=== PATIENT | male | born 1975 | race Two or more races ===

== ENCOUNTER 2021-07-24 09:15 | Outpatient (REF) | payer BC, SELFPAY ==
[2021-07-24 10:08] LABS: Hematocrit 44.8 % (42.0-52.0); Hemoglobin 14.7 g/dl (14.0-18.0); Mean Corpuscular HGB Conc 32.8 g/dl (31.0-36.0); Mean Corpuscular Hemoglobin 27.8 pg (27.0-33.0); Mean Corpuscular Volume 84.8 fL (80.0-98.0); Mean Platelet Volume 10.5 fL (9.4-12.4); Platelet Count 273 X10*3/uL (160-400); Red Blood Count 5.28 X10*6/uL (4.60-5.80); Red Cell Distribution Width 12.8 % (11.0-16.0); White Blood Count 6.5 X10*3/uL (4.8-10.8)
[2021-07-24 10:20] LABS: Estimated Average Glucose 126 mg/dL
[2021-07-24 10:22] LABS: Alanine Aminotransferase 60 U/L (0-40); Albumin Level 4.5 g/dL (3.5-5.0); Alkaline Phosphatase 48 U/L (39-117); Anion Gap 11 (12-20); Aspartate Amino Transferase 35 U/L (5-37); Bilirubin Total 0.7 mg/dL (0.0-1.0); Blood Urea Nitrogen 16 mg/dL (9-16); Calcium 9.5 mg/dL (8.4-10.2); Carbon Dioxide 26 mmol/L (22-29); Chloride 108 mmol/L (96-108); Cholesterol 237 mg/dL; Estimated Glomerular Filt Rate > 60; Glucose Fasting 101 mg/dL (60-99); HDL Cholesterol 44 mg/dL; LDL Cholesterol Calculated 173 mg/dl; Potassium 4.2 mmol/L (3.3-5.1); Sodium 141 mmol/L (135-145); Total Protein 7.1 g/dL (6.5-8.0); Triglycerides 104 mg/dL
[2021-07-24 10:59] LABS: TSH reflex Free T4 2.27 uIU/mL (0.32-4.0)
[2021-07-24 11:01] LABS: Prostate Specific Antigen Scr 0.73 ng/mL (<0.05-4.0)
== END 2021-07-24 09:16 | disposition home or self-care (01) ==
LOC: HO.LAB 09:15
PROVIDERS: PCP Physician Assistant; Visit Provider Physician Assistant
DX: Z13.1 Encounter for screening for diabetes mellitus (principal); Z12.5 Encounter for screening for malignant neoplasm of prostate; Z13.29 Encounter for screening for other suspected endocrine disorder; E78.5 Hyperlipidemia, unspecified
CPT/HCPCS: 36415; 80053; 80061; 83036; 84153; 84443; 85027

== ENCOUNTER 2023-02-16 09:48 | Outpatient (AMB) | payer BC, SELFPAY ==
[2023-02-16 10:18] VITALS: BP 120/80; PULSE 70; RESP 16; O2SAT 98; BMI 24.1
--- NOTE | 2023-02-16 10:18 | MHC.PC.OV ---
Vital Signs 02/16/23 10:18 Height 5 ft 7 in Weight 154 lb 2 oz BMI 24.1 BP 120/80 Blood Pressure Location Lt brachial Position Sitting Respiration 16 Pulse 70 Pulse Source Pulse Oximeter Pulse Oximetry (%) 98 Oxygen Delivery Method Room Air Intake Visit Reasons: Back Pain Intake Note: Pt is here for F/U chronic lower back pain. Application Coordinator Required: No Accompanied by: Self / Same As Patient Allergies atorvastatin Allergy (Mild, Verified 02/16/23 10:31) Unknown Medication List - Last Reconciled 02/16/23 by Ismael Blanco PA-C fluticasone propionate 50 mcg/actuation (Flonase Allergy Relief) 1 spray intranasal BID 30 days ibuprofen 800 mg PO TID 90 days omeprazole magnesium (Prilosec OTC) 20 mg PO DAILY 90 days Tobacco use date assessed: 02/16/23 Dental Screening Dental Screen Date: 02/16/23 Did you have a dental visit in the last 12 months?: No Did you have a dental problem in the last 6 months where you did not have access to dental care?: No Was dental information given to patient?: Patient has dentist HPI Back Pain HPI Details Patient is a 47-year-old male here today for follow-up visit. Patient's past medical history significant for hyperlipidemia, GERD, impaired glucose metabolism and chronic lower lumbar spine pain. .. Hyperlipidemia: Most recent fasting lipid panel showing elevated total cholesterol and LDL. Does have family history of coronary artery disease. We did discuss perhaps starting statin again though did not do well with statin due to side effect. He will continue working on lifestyle modifications to reduce his high cholesterol. .. Impaired glucose metabolism: Most recent labs showing of elevated fasting blood sugar and an A1c is 6.0. [facility] Surgical History No pertinent past surgical history Family History Father CAD (coronary artery disease) of artery bypass graft Throat cancer Mother TIA (transient ischemic attack) Social History Housing: House Alcohol intake: current Alcohol intake frequency: a few times a month Alcohol type: beer Patient Tobacco Use Status: Former Tobacco user (pt quit about a year ago.) Quit Date: 02/2022 Tobacco use type: Cigarette Cigarettes Per Day: 0 e-Cigarette/Vaping Use: Currently Using Frequency of e-Cigarette/Vaping Use: occasionally Second Hand Smoke Exposure: No service: No Current occupational status: employed 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 1. Little interest or pleasure in doing things: not at all 2. Feeling down, depressed, or hopeless: not at all 3. Trouble falling or staying asleep, or sleeping too much: not at all 4. Feeling tired or having little energy: not at all 5. Poor appetite or overeating: not at all 6. Feeling bad about yourself - or that you are a failure or have let yourself or your family down: not at all 7. Trouble concentrating on things, such as reading the newspaper or watching television: not at all 8. Moving or speaking so slowly that other people could have noticed. Or the opposite - being so fidgety or restless that you have been moving around a lot more than usual: not at all 9. Thoughts that you would be better off or of hurting yourself in some way: not at all Total score: 0 Depression Screening Interpretation: Negative 44682 - PHQ-9 Billing: Yes Source: Developed by Drs. Justin Kirk, Amparo Otero, Félix Gonzalez and colleagues, with an educational samuel from [employer]. Thrive Questionnaire Date Thrive assessed: 02/16/23 I am a: Patient What is your living situation today?: I have a steady place to live Within the past 12 months, did the food you bought not last and you didn't have the money to get more?: Never true Within the past 12 months, did you worry whether your food would run out before you got money to buy more?: Never true Do you have trouble paying for medicines?: No Do you have trouble getting transportation to medical appointments?: No Do you have trouble paying your heating and electricity bill?: No Do you have trouble taking care of your child, family member or friend?: No Do you have trouble with day-to-day activities such as bathing, preparing meals, shopping, managing finances, etc.?: No Are you currently unemployed and looking for a job?: No Are you interested in more education?: No Please select the resources that you would like help with: None Currently or been in a relationship where the following occur: no concerns reported AUDIT C Alcohol Use Questionnaire (AUDIT-C) 1. How often do you have a drink containing alcohol?: 2-3 times a week 2. How many drinks containing alcohol do you have on a typical day when you are drinking?: 1 or 2 3. How often do you have six or more drinks on one occasion?: Monthly Total Score: 5 YVES-7 AMB Questionnaire YVES-7 Date YVES - 7 assessed: 02/16/23 Feeling nervous, anxious, or on edge: 0 = Not at all Not being able to stop or control worryin = Not at all Worrying too much about different things: 0 = Not at all Trouble relaxin = Not at all Being so restless that it is hard to sit still: 0 = Not at all Becoming easily annoyed or irritable: 0 = Not at all Feeling afraid as if something awful might happen: 0 = Not at all Total YVSE-7 score (0-4 normal; 5-9 mild; 10-14 moderate; 15-21 severe): 0 Source: Developed by Drs. Justin Kirk, Amparo Otero, Félix Gonzalez and colleagues, with an educational samuel from [employer]. YVES-7 Assessment Billing YVES-7 Assessment Tool: YVES-7 Assessment 91185 Review of Systems Const Denies headache(s) Eyes Denies loss of vision ENT Denies vertigo, Denies dizziness, Denies headache(s) and Denies sore throat Card Denies chest pain, Denies leg edema and Denies lightheadedness Resp Denies cough, Denies hemoptysis and Denies wheezing GI Denies abdominal pain, Denies melena, Denies constipation, Denies diarrhea and Denies vomiting Denies dysuria, Denies urinary frequency and Denies urinary urgency Musc Denies arthralgias, Denies joint swelling, Denies numbness and Denies tingling Neuro Denies Abnormal speech present, Denies behavioral changes, Denies vertigo, Denies dizziness, Denies headache(s), Denies loss of vision, Denies memory loss, Denies numbness and Denies tingling Psych Denies anxiety, Denies behavioral changes, Denies depression, Denies memory loss and Denies panic attacks Lucas/Lymph Denies easy bleeding and Denies easy bruising Aller/Immun Denies wheezing Physical exam (Primary Care) Vital Signs: Last Vital Signs Pulse 70 02/16/23 10:18 Resp 16 02/16/23 10:18 BP 120/80 02/16/23 10:18 Pulse Ox 98 02/16/23 10:18 Oxygen Delivery Method Room Air 02/16/23 10:18 BMI result Body Mass Index 24.1 Tobacco/Smoking Status: Tobacco use Status Tobacco use date assessed 02/16/23 02/16/23 10:25 Patient Tobacco Use Status Former Tobacco user (pt quit 02/16/23 10:25 about a year ago.) Tobacco use type Cigarette 02/16/23 10:25 e-Cigarette/Vaping Use Currently Using 02/16/23 10:25 PHQ-9: PHQ-9 Score PHQ-9: Total score 0 02/16/23 10:31 Depression Screening Interpretation: Negative Thrive Assessment: Date of Thrive Assessment Date Thrive assessed 02/16/23 02/16/23 10:25 Currently or been in a relationship where the following occur: no concerns reported Const General: healthy appearing, no acute distress, alert and awake Nutritional Appearance: well nourished Orientation/consciousness: oriented to person, oriented to place and oriented to time HENMT Ears: TM's normal bilaterally General nose exam: Normal nasal mucous membranes and turbinates present Eyes Conjunctivae: conjunctivae normal Sclerae: sclerae normal Pupils: Equal, round and reactive pupils present Neck Neck: Yes no lymphadenopathy and Yes no JVD Thyroid: Thyroid normal Carotids: no bruits Resp Effort & Inspection: normal respiratory effort and not tachypneic Auscultation: no crackles, no rales, no rhonchi and no wheezes Cardio Rate: regular rate Rhythm: regular rhythm Heart sounds: no murmurs and normal S1 and S2 GI Palpation (GI): Soft to palpation, nontender, no hepatomegaly and no splenomegaly Auscultation: normal bowel sounds Skin General skin exam: no rashes or lesions noted and dry skin Neuro General: oriented to person, oriented to place and oriented to time Cranial nerves: Yes Equal, round and reactive pupils present Speech: No Abnormal speech present Gait exam (Neuro): Normal gait present Motor exam (neuro): no tremor noted Extrem Right upper extremity: full ROM Left upper extremity: full ROM Right lower extremity: full ROM; no edema Left lower extremity: full ROM; no edema Psych Mental Status: mental status grossly normal Speech and movement: Normal speech and movement present Affect: normal affect Attitude: cooperative Thought process: Normal thought process present Assessment and Plan Assessment & Plan (1) HLD (hyperlipidemia): Code(s): E78.5 - Hyperlipidemia, unspecified Qualifiers: Hyperlipidemia type: mixed hyperlipidemia Qualified Code(s): E78.2 - Mixed hyperlipidemia Plan: Patient's most recent lipid panel showing elevated total cholesterol and LDL. Does have a family history of coronary artery disease though is not interested in starting medication at this time, had side effects to statin in the past. Would like to work on lifestyle modifications to reduce his high cholesterol. (2) Impaired glucose metabolism: Code(s): R73.09 - Other abnormal glucose Plan: Patient's most recent fasting blood sugar and A1c in prediabetic range. He will work on lifestyle modifications on reducing his carbohydrates and sugar in his diet. (3) Colon cancer screening: Code(s): Z12.11 - Encounter for screening for malignant neoplasm of colon Plan: Considering colon cancer screening though would like to hold off on ordering Cologuard or colonoscopy at this time. Orders: Orders Comprehensive [place]. Panel Fast Today R73.09 - Other abnormal glucose Lipid Panel Today E78.2 - Mixed hyperlipidemia Hemoglobin A1c Today R73.09 - Other abnormal glucose Medications: New cholecalciferol (vitamin D3) 50 mcg PO DAILY 90 days 90 caps 1RF E55.9 - Vitamin D deficiency, unspecified, E78.2 - Mixed hyperlipidemia Refilled ibuprofen 800 mg PO TID 90 days 270 tabs 0RF M51.9 - Unspecified thoracic, thoracolumbar and lumbosacral intervertebral disc disorder fluticasone propionate 50 mcg/actuation (Flonase Allergy Relief) administer into each nostril 1 spray intranasal BID 30 days 16 grams 1RF K21.9 - Gastro-esophageal reflux disease without esophagitis omeprazole magnesium (Prilosec OTC) 20 mg PO DAILY 90 days 90 tabs 1RF K21.9 - Gastro-esophageal reflux disease without esophagitis Coding Level of Care Code Est Pt Level 4 (41143) Diagnoses Mixed hyperlipidemia E78.2 Hyperlipidemia type: mixed hyperlipidemia Impaired glucose metabolism R73.09 Colon cancer screening Z12.11 Additional Codes YVES-7 Assessment Billing - YVES-7 Assessment Tool: YVES-7 Assessment [id number] ([id number])
== END 2023-02-16 10:42 | disposition home or self-care (01) ==
PROVIDERS: PCP Physician Assistant; Visit Provider Physician Assistant
DX: E78.2 Mixed hyperlipidemia (principal); R73.09 Other abnormal glucose; Z12.11 Encounter for screening for malignant neoplasm of colon
CPT/HCPCS: 99214

== ENCOUNTER 2023-06-22 13:30 | Outpatient (AMB) | payer BC, SELFPAY ==
[2023-06-22 13:31] VITALS: BP 140/90; PULSE 70; RESP 17; O2SAT 100; BMI 24.4
--- NOTE | 2023-06-22 13:31 | MHC.PC.OV ---
Vital Signs 06/22/23 13:31 Height 5 ft 7 in Weight 156 lb BMI 24.4 BP 140/90 H Blood Pressure Location Lt brachial Position Sitting Respiration 17 Pulse 70 Pulse Source Pulse Oximeter Pulse Oximetry (%) 100 Oxygen Delivery Method Room Air Intake Visit Reasons: Physical Exam Intake Note: Patient is here today for a physical. 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 Accompanied by: Self / Same As Patient Allergies atorvastatin Allergy (Mild, Verified 06/22/23 13:38) Unknown Medication List - Last Reconciled 06/22/23 by Ismael Blanco PA-C cholecalciferol (vitamin D3) 50 mcg PO DAILY 90 days fluticasone propionate 50 mcg/actuation (Flonase Allergy Relief) 1 spray intranasal BID 30 days ibuprofen 800 mg PO TID 90 days omeprazole magnesium (Prilosec OTC) 20 mg PO DAILY 90 days Tobacco use date assessed: 06/22/23 Dental Screening Dental Screen Date: 06/22/23 Did you have a dental visit in the last 12 months?: Yes Did you have a dental problem in the last 6 months where you did not have access to dental care?: No Was dental information given to patient?: Patient has dentist HPI Physical Exam HPI Details Patient is a 47-year-old male here today for routine annual physical. Patient's past medical history significant for hyperlipidemia, GERD, impaired glucose metabolism and chronic lower lumbar spine pain. Concern--> reports left upper trapezius pain over the last several weeks. He reports lifting at work and injuring his upper trapezius. Has been using ibuprofen without much relief. Also noted elevated blood pressure readings today in office, likely secondary to NSAID use recently. .. Hyperlipidemia: Most recent fasting lipid panel showing elevated total cholesterol and LDL. Does have family history of coronary artery disease. We did discuss perhaps starting statin again though did not do well with statin due to side effect. He will continue working on lifestyle modifications to reduce his high cholesterol. .. Impaired glucose metabolism: Most recent labs showing of elevated fasting blood sugar and an A1c is 6.0. Colon cancer screening: willing to do colonoscopy. Vaccines: Up-to-date with COVID vaccine, tetanus vaccine, declines flu PFSH Surgical History No pertinent past surgical history Family History Father CAD (coronary artery disease) of artery bypass graft Throat cancer Mother TIA (transient ischemic attack) Social History (Updated 06/22/23 @ 13:43 by Ismael Blanco PA-C) Housing: House Alcohol intake: current Alcohol intake frequency: a few times a month Alcohol type: beer Patient Tobacco Use Status: Former Tobacco user (pt quit about a year ago.) Quit Date: 02/2022 Tobacco use type: Cigarette Cigarettes Per Day: 0 e-Cigarette/Vaping Use: Currently Using Second Hand Smoke Exposure: No service: No Current occupational status: employed 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 1. Little interest or pleasure in doing things: not at all 2. Feeling down, depressed, or hopeless: not at all 3. Trouble falling or staying asleep, or sleeping too much: not at all 4. Feeling tired or having little energy: not at all 5. Poor appetite or overeating: not at all 6. Feeling bad about yourself - or that you are a failure or have let yourself or your family down: not at all 7. Trouble concentrating on things, such as reading the newspaper or watching television: not at all 8. Moving or speaking so slowly that other people could have noticed. Or the opposite - being so fidgety or restless that you have been moving around a lot more than usual: not at all 9. Thoughts that you would be better off or of hurting yourself in some way: not at all Total score: 0 Depression Screening Interpretation: Negative Depression Screening Done: Yes [id number] - PHQ-9 Billing: Yes Source: Developed by Drs. Justin Kirk, Amparo Otero, Félix Gonzalez and colleagues, with an educational samuel from [employer]. Thrive Questionnaire Date Thrive assessed: 06/22/23 I am a: Patient What is your living situation today?: I have a steady place to live Within the past 12 months, did the food you bought not last and you didn't have the money to get more?: Never true Within the past 12 months, did you worry whether your food would run out before you got money to buy more?: Never true Do you have trouble paying for medicines?: No Do you have trouble getting transportation to medical appointments?: No Do you have trouble paying your heating and electricity bill?: No Do you have trouble taking care of your child, family member or friend?: No Do you have trouble with day-to-day activities such as bathing, preparing meals, shopping, managing finances, etc.?: No Are you currently unemployed and looking for a job?: No Are you interested in more education?: No Please select the resources that you would like help with: None Currently or been in a relationship where the following occur: no concerns reported AUDIT C Alcohol Use Questionnaire (AUDIT-C) 1. How often do you have a drink containing alcohol?: 2-3 times a week 2. How many drinks containing alcohol do you have on a typical day when you are drinking?: 1 or 2 3. How often do you have six or more drinks on one occasion?: Monthly Total Score: 5 YVES-7 AMB Questionnaire YVES-7 Date YVES - 7 assessed: 06/22/23 Feeling nervous, anxious, or on edge: 0 = Not at all Not being able to stop or control worryin = Not at all Worrying too much about different things: 0 = Not at all Trouble relaxin = Not at all Being so restless that it is hard to sit still: 0 = Not at all Becoming easily annoyed or irritable: 0 = Not at all Feeling afraid as if something awful might happen: 0 = Not at all Total YVES-7 score (0-4 normal; 5-9 mild; 10-14 moderate; 15-21 severe): 0 Source: Developed by Drs. Justin Kirk, Amparo Otero, Félix Gonzalez and colleagues, with an educational samuel from [employer]. YVES-7 Assessment Billing YVES-7 Assessment Tool: YVES-7 Assessment 12829 Review of Systems Const Denies body aches, Denies chills, Denies excessive sweating, Denies fatigue, Denies fever(s) and Denies headache(s) Eyes Denies blurry vision ENT Denies dysphagia, Denies vertigo, Denies dizziness, Denies headache(s), Denies hearing loss and Denies tinnitus Card Denies chest pain, Denies chest pain with activity, Denies syncope, Denies irregular heart rhythm and Denies dyspnea Resp Denies chest congestion, Denies cough, Denies hemoptysis, Denies dyspnea and Denies wheezing GI Denies abdominal pain, Denies melena, Denies hematochezia, Denies coffee ground emesis, Denies dysphagia, Denies diarrhea, Denies nausea and Denies vomiting Denies difficulty urinating, Denies dysuria, Denies urinary frequency, Denies urinary hesitancy and Denies urinary urgency Musc Denies arthralgias, Denies limited range of motion, Denies muscle cramps and Denies muscle weakness Skin/Breast Denies rash and Denies skin ulcer Neuro Denies Abnormal speech present, Denies confusion, Denies vertigo, Denies dizziness, Denies syncope, Denies headache(s), Denies memory loss and Denies seizure-like activity Psych Denies anxiety, Denies confusion, Denies depression, Denies memory loss, Denies panic attacks and Denies paranoia Endo Denies excessive sweating, Denies fatigue, Denies flushing, Denies polydipsia and Denies polyuria Aller/Immun Denies wheezing Physical exam (Primary Care) Vital Signs: Last Vital Signs Pulse 70 06/22/23 13:31 Resp 17 06/22/23 13:31 BP 140/90 H 06/22/23 13:31 Pulse Ox 100 06/22/23 13:31 Oxygen Delivery Method Room Air 06/22/23 13:31 BMI result Body Mass Index 24.4 Tobacco/Smoking Status: Tobacco use Status Tobacco use date assessed 06/22/23 06/22/23 13:33 Patient Tobacco Use Status Former Tobacco user (pt quit 06/22/23 13:33 about a year ago.) Tobacco use type Cigarette 06/22/23 13:33 e-Cigarette/Vaping Use Currently Using 06/22/23 13:33 PHQ-9: PHQ-9 Score PHQ-9: Total score 0 06/22/23 13:33 Depression Screening Interpretation: Negative Thrive Assessment: Date of Thrive Assessment Date Thrive assessed 06/22/23 06/22/23 13:33 Currently or been in a relationship where the following occur: no concerns reported Const General: cooperative, comfortable, no acute distress, alert and awake; No confusion Orientation/consciousness: oriented to person, oriented to place, patient oriented x3 and No confusion HENMT Head: Yes normocephalic Ears: external ears normal and TM's normal bilaterally Face and sinus: No sinus tenderness Mouth: Normal oral and palatal mucosa present and tongue normal Teeth and gingiva: dentition normal and gingiva normal Throat: Yes posterior oropharynx normal, Yes tonsils normal and Yes uvula midline Eyes Conjunctivae: conjunctivae normal Sclerae: sclerae normal Pupils: Equal, round and reactive pupils present EOM: EOMs intact bilaterally Direct Ophthalmoscopy: No no photophobia Neck Neck: Yes no lymphadenopathy, No tender and Yes no JVD Thyroid: Thyroid normal Carotids: no bruits Chest Chest palpation & inspection: no tenderness Resp Effort & Inspection: normal respiratory effort, no audible wheezes, not labored and no stridor Auscultation: no crackles, no rales, no rhonchi and no wheezes Cardio Jugular venous distension: no JVD Rate: regular rate, not bradycardic and not tachycardic Rhythm: regular rhythm Bruits: no carotid bruits Peripheral pulses: Peripheral pulses 2+ throughout GI Inspection: Yes normal to inspection, No abdominal wall ecchymosis and No visible herniation Palpation (GI): Soft to palpation, nontender, no guarding, not rigid and No hepatosplenomegaly present Auscultation: normoactive bowel sounds General: Yes no CVA tenderness Back/Spine/Pelvis Back: no CVA tenderness and No back tenderness Cervical Spine: cervical ROM normal Thoracic/Lumbar Spine: thoracic and lumbar spine normal to inspection, straight leg raise negative bilaterally, No thoraco-lumbar ROM limited and No lumbar spinal tenderness Skin Lesions: no lesions Rashes: no rashes Wounds: no wounds Neuro General: oriented to person, oriented to place, patient oriented x3, CN's II-XI intact bilaterally and No confusion Cranial nerves: Yes Equal, round and reactive pupils present and Yes Normal accommodation reflex present Cognition (Neuro): normal cognition Speech: No Abnormal speech present Gait exam (Neuro): Normal gait present Motor exam (neuro): 5/5 motor strength present throughout Extrem Right upper extremity: full ROM; no cyanosis Left upper extremity: full ROM; no cyanosis Right lower extremity: no edema Left lower extremity: no edema Psych Appearance: grossly normal Mental Status: mental status grossly normal Affect: normal affect Attitude: cooperative Thought process: Normal thought process present Assessment and Plan Assessment & Plan (1) Annual physical exam: Code(s): Z00.00 - Encounter for general adult medical examination without abnormal findings (2) HLD (hyperlipidemia): Code(s): E78.5 - Hyperlipidemia, unspecified Qualifiers: Hyperlipidemia type: mixed hyperlipidemia Qualified Code(s): E78.2 - Mixed hyperlipidemia Plan: Patient's most recent lipid panel showing elevated total cholesterol and LDL. Does have a family history of coronary artery disease though is not interested in starting medication at this time, had side effects to statin in the past. Would like to work on lifestyle modifications to reduce his high cholesterol. (3) Impaired glucose metabolism: Code(s): R73.09 - Other abnormal glucose Plan: Patient's most recent fasting blood sugar and A1c in prediabetic range. He will work on lifestyle modifications on reducing his carbohydrates and sugar in his diet. (4) Colon cancer screening: Code(s): Z12.11 - Encounter for screening for malignant neoplasm of colon Plan: Interested in Cologuard (5) Strain of left trapezius muscle: Code(s): S46.812A - Strain of other muscles, fascia and tendons at shoulder and upper arm level, left arm, initial encounter Qualifiers: Encounter type: initial encounter Qualified Code(s): S46.812A - Strain of other muscles, fascia and tendons at shoulder and upper arm level, left arm, initial encounter Plan: Reports recently lifting at work in injuring his upper trapezius/shoulder. He has been using more ibuprofen as of late though has not been effective. He is interested muscle relaxer (6) Elevated blood pressure reading in office without diagnosis of hypertension: Code(s): R03.0 - Elevated blood-pressure reading, without diagnosis of hypertension Plan: Noted elevated blood pressure reading today in office. Has been taking ibuprofen as of late due to his upper back pain. Advised to monitor blood pressure at home and if consistently above 140/90 will consider low-dose lisinopril. Orders: Referrals Cologuard Test S46.812A - Strain of other muscles, fascia and tendons at shoulder and upper arm level, left arm, initial encounter, Z12.11 - Encounter for screening for malignant neoplasm of colon Medications: New cyclobenzaprine 5 mg PO BEDTIME 14 days 14 tabs 0RF S46.812A - Strain of other muscles, fascia and tendons at shoulder and upper arm level, left arm, initial encounter Coding Level of Care Code Est Pt Prev Care 40-64y([id number]) Diagnoses Annual physical exam Z00.00 Mixed hyperlipidemia E78.2 Hyperlipidemia type: mixed hyperlipidemia Impaired glucose metabolism R73.09 Colon cancer screening Z12.11 Strain of left trapezius muscle, initial encounter S46.812A Encounter type: initial encounter Elevated blood pressure reading in office without diagnosis of hypertension R03.0 Additional Codes YVES-7 Assessment Billing - YVES-7 Assessment Tool: YVES-7 Assessment [id number] ([id number])
== END 2023-06-22 14:01 | disposition home or self-care (01) ==
PROVIDERS: PCP Physician Assistant; Visit Provider Physician Assistant
DX: Z00.00 Encounter for general adult medical examination without abnormal findings (principal); E78.2 Mixed hyperlipidemia; R73.09 Other abnormal glucose; Z12.11 Encounter for screening for malignant neoplasm of colon; S46.812A Strain of other muscles, fascia and tendons at shoulder and upper arm level, left arm, initial encounter; R03.0 Elevated blood-pressure reading, without diagnosis of hypertension
CPT/HCPCS: 99396

== ENCOUNTER 2024-01-04 02:51 | Emergency (ER) | payer OTHER, SELFPAY ==
[2024-01-04 02:54] VITALS: BP 159/96; PULSE 83; RESP 18; TEMP 36.8; O2SAT 97; BMI 24.4
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
[2024-01-04] MEDS: oxyCODONE HCl Immed Release 5 MG TABLET 10 MG PO (04:51)
[2024-01-04] MEDS: Cyclobenzaprine HCl 10 MG TABLET PO (04:51)
[2024-01-04 04:57] VITALS: BP 159/96; PULSE 83; RESP 18; TEMP 36.8; O2SAT 97
== END 2024-01-04 04:58 | disposition home or self-care (01) ==
PROVIDERS: Emergency Provider Internal Medicine; PCP Physician Assistant
DX: S40.012A Contusion of left shoulder, initial encounter (principal); X58.XXXA Exposure to other specified factors, initial encounter; V43.52XA Car driver injured in collision with other type car in traffic accident, initial encounter; Y93.89 Activity, other specified; Y92.410 Unspecified street and highway as the place of occurrence of the external cause; Y99.8 Other external cause status; Z87.891 Personal history of nicotine dependence
CPT/HCPCS: 99283; 99284

== ENCOUNTER 2024-03-19 10:25 | Outpatient (REF) | payer BC, SELFPAY ==
[2024-03-19 12:21] LABS: Hemoglobin 14.5 g/dl (14.0-18.0); Mean Corpuscular Hemoglobin 28.2 pg (27.0-33.0); Mean Corpuscular Volume 85.4 fL (80.0-98.0); Mean Platelet Volume 10.5 fL (9.4-12.4); Platelet Count 265 X10*3/uL (160-400); Red Blood Count 5.15 X10*6/uL (4.60-5.80); Red Cell Distribution Width 13.4 % (11.0-16.0); White Blood Count 5.7 X10*3/uL (4.8-10.8)
[2024-03-19 12:58] LABS: Alanine Aminotransferase 61 U/L (0-40); Albumin Level 4.5 g/dL (3.5-5.0); Alkaline Phosphatase 43 U/L (39-117); Anion Gap 10 (12-20); Aspartate Amino Transferase 30 U/L (5-37); Bilirubin Total 0.5 mg/dL (0.0-1.0); Blood Urea Nitrogen 20 mg/dL (9-16); Calcium 8.8 mg/dL (8.4-10.2); Carbon Dioxide 26 mmol/L (22-29); Chloride 109 mmol/L (96-108); Cholesterol 247 mg/dL (<200); Estimated Glomerular Filt Rate > 60; Glucose Fasting 100 mg/dL (60-99); HDL Cholesterol 50 mg/dL (>40); LDL Cholesterol Calculated 172 mg/dL (<100); Sodium 141 mmol/L (135-145); Total Protein 7.2 g/dL (6.5-8.0); Triglycerides 125 mg/dL (<150)
== END 2024-03-19 10:26 | disposition home or self-care (01) ==
LOC: HO.LAB 10:25
PROVIDERS: PCP Physician Assistant; Visit Provider Physician Assistant
DX: E78.2 Mixed hyperlipidemia (principal); R73.09 Other abnormal glucose; K21.9 Gastro-esophageal reflux disease without esophagitis; Z12.5 Encounter for screening for malignant neoplasm of prostate; Z13.39 Encounter for screening examination for other mental health and behavioral disorders
CPT/HCPCS: 36415; 80053; 80061; 84153; 85027; 96127

== ENCOUNTER 2024-03-19 10:25 | Outpatient (AMB) | payer BC, SELFPAY ==
--- NOTE | 2024-03-19 10:28 | A.OFFPC_ITS ---
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 Accompanied by: Self / Same As Patient Allergies atorvastatin Allergy (Mild, Verified 03/19/24 10:40) Unknown Medication List - Last Reconciled 03/19/24 by Ismael Blanco PA-C cholecalciferol (vitamin D3) 50 mcg PO DAILY 90 days cyclobenzaprine 10 mg PO Q8H fluticasone propionate 50 mcg/actuation (Flonase Allergy Relief) 1 spray intran shaista BID 30 days ibuprofen 600 mg PO Q6H PRN ibuprofen 800 mg PO TID 90 days omeprazole magnesium (Prilosec OTC) 20 mg PO DAILY 90 days Tobacco use date assessed: 06/22/23 Dental Screening Dental Screen Date: 06/22/23 HPI f/u HLD/ IGM HPI Details Patient is a 48-year-old male here today for follow-up visit. Delmy henderson's past medical history significant for hyperlipidemia, GERD, impaired glucose metabolism and chronic lower lumbar spine pain. .. Hyperlipidemia: Most recent fasting lipid panel showing elevated total cholesterol and LDL. Does have family history of coronary artery disease. We did discuss perhaps starting statin again though did not do well with statin due to side effect. He will continue working on lifestyle modifications to reduce his high cholesterol. .. Impaired glucose metabolism: Most recent labs showing of elevated fasting blood sugar and an A1c is 6.0. 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 1. Little interest or pleasure in doing things: not at all 2. Feeling down, depressed, or hopeless: not at all 3. Trouble falling or staying asleep, or sleeping too much: not at all 4. Feeling tired or having little energy: not at all 5. Poor appetite or overeating: not at all 6. Feeling bad about yourself - or that you are a failure or have let yourself or your family down: not at all 7. Trouble concentrating on things, such as reading the newspaper or watching television: not at all 8. Moving or speaking so slowly that other people could have noticed. Or the opposite - being so fidgety or restless that you have been moving around a lot more than usual: not at all 9. Thoughts that you would be better off or of hurting yourself in some way: not at all Total score: 0 Depression Screening Interpretation: Negative Depression Screening Done: Yes 29230 - PHQ-9 Billing: Yes Source: Developed by Drs. Justin Kirk, Amparo Otero, Félix Gonzalez and colleagues, with an educational samuel from [employer]. Thrive Questionnaire Date Thrive assessed: 03/19/24 I am a: Patient What is your living situation today?: I have a steady place to live Within the past 12 months, did the food you bought not last and you didn't have the money to get more?: Never true Within the past 12 months, did you worry whether your food would run out before you got money to buy more?: Never true Do you have trouble paying for medicines?: No Do you have trouble getting transportation to medical appointments?: No Do you have trouble paying your heating and electricity bill?: No Do you have trouble taking care of your child, family member or friend?: No Do you have trouble with day-to-day activities such as bathing, preparing meals, shopping, managing finances, etc.?: No Are you currently unemployed and looking for a job?: No Are you interested in more education?: No Please select the resources that you would like help with: None Currently or been in a relationship where the following occur: No concerns reported THRIVE Score: 0 AUDIT C Alcohol Use Questionnaire (AUDIT-C) 1. How often do you have a drink containing alcohol?: 2-3 times a week 2. How many drinks containing alcohol do you have on a typical day when you are drinking?: 1 or 2 3. How often do you have six or more drinks on one occasion?: Monthly Total Score: 5 YVES-7 AMB Questionnaire YVES-7 Date YVES - 7 assessed: 03/19/24 Feeling nervous, anxious, or on edge: 0 = Not at all Not being able to stop or control worryin = Not at all Worrying too much about different things: 0 = Not at all Trouble relaxin = Not at all Being so restless that it is hard to sit still: 0 = Not at all Becoming easily annoyed or irritable: 0 = Not at all Feeling afraid as if something awful might happen: 0 = Not at all Total YVES-7 score (0-4 normal; 5-9 mild; 10-14 moderate; 15-21 severe): 0 Source: Developed by Drs. Justin Kirk, Amparo Otero, Félix Gonzalez and colleagues, with an educational samuel from [employer]. YVES-7 Assessment Billing YVES-7 Assessment Tool: YVES-7 Assessment 72004 Physical exam (Primary Care) Vital Signs: Last Vital Signs Pulse 73 03/19/24 10:30 BP 110/64 03/19/24 10:30 Pulse Ox 97 03/19/24 10:30 Oxygen Delivery Method Room Air 03/19/24 10:30 BMI result Body Mass Index 24.4 Tobacco/Smoking Status: Tobacco use Status Tobacco use date assessed 06/22/23 03/19/24 10:29 Patient Tobacco Use Status Former Tobacco user 03/19/24 10:29 Tobacco use type Cigarette 03/19/24 10:29 e-Cigarette/Vaping Use Currently Using 03/19/24 10:29 PHQ-9: PHQ-9 Score PHQ-9: Total score 0 03/19/24 10:44 Depression Screening Interpretation: Negative Thrive Assessment: Date of Thrive Assessment Date Thrive assessed 03/19/24 03/19/24 10:29 Currently or been in a relationship where the following occur: No concerns reported Coding Level of Care Code Est Pt Level 4 (64615) Diagnoses Mixed hyperlipidemia E78.2 Hyperlipidemia type: mixed hyperlipidemia Impaired glucose metabolism R73.09 Additional Codes YVES-7 Assessment Billing - YVES-7 Assessment Tool: YVES-7 Assessment 87639 ([id number]) Assessment & Plan Assessment & Plan (1) HLD (hyperlipidemia): Code(s): E78.5 - Hyperlipidemia, unspecified Category: Medical Qualifiers: Hyperlipidemia type: mixed hyperlipidemia Qualified Code(s): E78.2 - Mixed hyperlipidemia Plan: Patient has a history of elevated total cholesterol and LDL. He is not interested in starting medication will like to work on lifestyle and dietary modifications. Of note does have family history of coronary artery disease. Goal LDL to be below 160 (2) Impaired glucose metabolism: Code(s): R73.09 - Other abnormal glucose Category: Medical Plan: Patient does have a history of impaired glucose metabolism. Most recent A1c is 6.0. Again patient will like to work on lifestyle and dietary modifications to reduce his blood sugars. Patient Instructions: Goal: LDL to be below 160, fasting blood sugar to be below 100 Barriers: Adherence to physical activity and healthy eating habits
[2024-03-19 10:30] VITALS: BP 110/64; PULSE 73; O2SAT 97; BMI 24.4
== END 2024-03-19 10:52 | disposition home or self-care (01) ==
PROVIDERS: PCP Physician Assistant; Visit Provider Physician Assistant
DX: E78.2 Mixed hyperlipidemia (principal); R73.09 Other abnormal glucose

== ENCOUNTER 2024-06-25 09:38 | Outpatient (AMB) | payer BC, SELFPAY ==
[2024-06-25 09:57] VITALS: BP 138/90; PULSE 70; TEMP 36.2; O2SAT 98; BMI 23.8
--- NOTE | 2024-06-25 09:57 | MHC.PC.OV ---
Vital Signs 06/25/24 09:57 06/25/24 10:15 Height 5 ft 7 in Weight 152 lb 4 oz BMI 23.8 BP 138/90 H 128/75 Blood Pressure Location Lt brachial Position Sitting Pulse 70 Pulse Source Pulse Oximeter Temp 97.1 F Temp Source Temporal Artery Scan Pulse Oximetry (%) 98 Oxygen Delivery Method Room Air Intake Visit Reasons: Annual exam Intake Note: Patient is here today for a physical. 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 Accompanied by: Self / Same As Patient Allergies atorvastatin Allergy (Mild, Verified 06/25/24 10:05) Unknown Medication List - Last Reconciled 06/25/24 by Ismael Blanco PA-C cholecalciferol (vitamin D3) 50 mcg PO DAILY 90 days cyclobenzaprine 10 mg PO Q8H fluticasone propionate 50 mcg/actuation (Flonase Allergy Relief) 1 spray intranasal BID 30 days ibuprofen 600 mg PO Q6H PRN omeprazole magnesium (Prilosec OTC) 20 mg PO DAILY 90 days simvastatin 10 mg PO DAILY 90 days Tobacco use date assessed: 06/25/24 Dental Screening Dental Screen Date: 06/25/24 Did you have a dental visit in the last 12 months?: Yes Did you have a dental problem in the last 6 months where you did not have access to dental care?: No Was dental information given to patient?: Patient has dentist HPI Annual exam HPI Details Patient is a 48-year-old male here today for an annual physical. Patient's past medical history significant for hyperlipidemia, GERD, impaired glucose metabolism and chronic lower lumbar spine pain. .. Hyperlipidemia: Most recent fasting lipid panel showing elevated total cholesterol and LDL. Does have family history of coronary artery disease. Started simvastatin has been taking it 3 times a week. He does report mild side effects of myalgias. He will recheck his fasting lipid panel. Elevated blood pressure reading- noted elevated blood pressure reading initially though recheck was much better. He will start commencing blood pressure monitoring at home and will consider blood pressure medication if consistently elevated. .. Impaired glucose metabolism: Most recent labs showing of elevated fasting blood sugar and an A1c is 6.0. Colorectal cancer screening: Has been referred for Cologuard though has not been done. Vaccines: Vaccines: Up-to-date with COVID vaccine, tetanus vaccine, declines flu PFSH Surgical History No pertinent past surgical history Family History Father CAD (coronary artery disease) of artery bypass graft Throat cancer Mother TIA (transient ischemic attack) Social History (Updated 06/25/24 @ 10:07 by Ismael Blanco PA-C) Housing: House Alcohol intake: current Alcohol intake frequency: a few times a month Alcohol type: beer Patient Tobacco Use Status: Former Tobacco user Tobacco use type: Cigarette Cigarettes Per Day: 0 e-Cigarette/Vaping Use: Currently Using Second Hand Smoke Exposure: No service: No Current occupational status: employed 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 1. Little interest or pleasure in doing things: not at all 2. Feeling down, depressed, or hopeless: not at all 3. Trouble falling or staying asleep, or sleeping too much: not at all 4. Feeling tired or having little energy: not at all 5. Poor appetite or overeating: not at all 6. Feeling bad about yourself - or that you are a failure or have let yourself or your family down: not at all 7. Trouble concentrating on things, such as reading the newspaper or watching television: not at all 8. Moving or speaking so slowly that other people could have noticed. Or the opposite - being so fidgety or restless that you have been moving around a lot more than usual: not at all 9. Thoughts that you would be better off or of hurting yourself in some way: not at all Total score: 0 Depression Screening Interpretation: Negative Depression Screening Done: Yes 52373 - PHQ-9 Billing: Yes Source: Developed by Drs. Justin Kirk, Amparo Otero, Félix Gonzalez and colleagues, with an educational samuel from [employer] Thrive Questionnaire Date Thrive assessed: 06/25/24 I am a: Patient What is your living situation today?: I have a steady place to live Within the past 12 months, did the food you bought not last and you didn't have the money to get more?: Never true Within the past 12 months, did you worry whether your food would run out before you got money to buy more?: Never true Do you have trouble paying for medicines?: No Do you have trouble getting transportation to medical appointments?: No Do you have trouble paying your heating and electricity bill?: No Do you have trouble taking care of your child, family member or friend?: No Do you have trouble with day-to-day activities such as bathing, preparing meals, shopping, managing finances, etc.?: No Are you currently unemployed and looking for a job?: No Are you interested in more education?: No Please select the resources that you would like help with: None Currently or been in a relationship where the following occur: No concerns reported THRIVE Score: 0 AUDIT C Alcohol Use Questionnaire (AUDIT-C) 1. How often do you have a drink containing alcohol?: Monthly or less 2. How many drinks containing alcohol do you have on a typical day when you are drinking?: 3 or 4 3. How often do you have six or more drinks on one occasion?: Less than monthly Total Score: 3 YVES-7 AMB Questionnaire YVES-7 Date YVES - 7 assessed: 06/25/24 Feeling nervous, anxious, or on edge: 0 = Not at all Not being able to stop or control worryin = Not at all Worrying too much about different things: 0 = Not at all Trouble relaxin = Not at all Being so restless that it is hard to sit still: 0 = Not at all Becoming easily annoyed or irritable: 0 = Not at all Feeling afraid as if something awful might happen: 0 = Not at all Total YVES-7 score (0-4 normal; 5-9 mild; 10-14 moderate; 15-21 severe): 0 Source: Developed by Drs. Justin Kirk, Amparo Otero, Félix Gonzalez and colleagues, with an educational samuel from [employer] YVES-7 Assessment Billing YVES-7 Assessment Tool: YVES-7 Assessment 74464 Review of Systems Const Denies body aches, Denies chills, Denies excessive sweating, Denies fatigue, Denies fever(s) and Denies headache(s) Eyes Denies blurry vision ENT Denies dysphagia, Denies vertigo, Denies dizziness, Denies headache(s), Denies hearing loss and Denies tinnitus Card Denies chest pain, Denies chest pain with activity, Denies syncope, Denies irregular heart rhythm and Denies dyspnea Resp Denies chest congestion, Denies cough, Denies hemoptysis, Denies dyspnea and Denies wheezing GI Denies abdominal pain, Denies melena, Denies hematochezia, Denies coffee ground emesis, Denies dysphagia, Denies diarrhea, Denies nausea and Denies vomiting Denies difficulty urinating, Denies dysuria, Denies urinary frequency, Denies urinary hesitancy and Denies urinary urgency Musc Denies arthralgias, Denies limited range of motion, Denies muscle cramps and Denies muscle weakness Skin/Breast Denies rash and Denies skin ulcer Neuro Denies Abnormal speech present, Denies confusion, Denies vertigo, Denies dizziness, Denies syncope, Denies headache(s), Denies memory loss and Denies seizure-like activity Psych Denies anxiety, Denies confusion, Denies depression, Denies memory loss, Denies panic attacks and Denies paranoia Endo Denies excessive sweating, Denies fatigue, Denies flushing, Denies polydipsia and Denies polyuria Aller/Immun Denies wheezing Physical exam (Primary Care) Vital Signs: Last Vital Signs Temp 97.1 F 06/25/24 09:57 Pulse 70 06/25/24 09:57 BP 138/90 H 06/25/24 09:57 Pulse Ox 98 06/25/24 09:57 Oxygen Delivery Method Room Air 06/25/24 09:57 BMI result Body Mass Index 23.8 Tobacco/Smoking Status: Tobacco use Status Tobacco use date assessed 06/25/24 06/25/24 10:03 Patient Tobacco Use Status Former Tobacco user 06/25/24 09:59 Tobacco use type Cigarette 06/25/24 09:59 e-Cigarette/Vaping Use Currently Using 06/25/24 09:59 PHQ-9: PHQ-9 Score PHQ-9: Total score 0 06/25/24 09:59 Depression Screening Interpretation: Negative Thrive Assessment: Date of Thrive Assessment Date Thrive assessed 06/25/24 06/25/24 09:59 Currently or been in a relationship where the following occur: No concerns reported Const General: cooperative, comfortable, no acute distress, alert and awake; No confusion Orientation/consciousness: oriented to person, oriented to place, patient oriented x3 and No confusion HENMT Head: Yes normocephalic Ears: external ears normal and TM's normal bilaterally Face and sinus: No sinus tenderness Mouth: Normal oral and palatal mucosa present and tongue normal Teeth and gingiva: dentition normal and gingiva normal Throat: Yes posterior oropharynx normal, Yes tonsils normal and Yes uvula midline Eyes Conjunctivae: conjunctivae normal Sclerae: sclerae normal Pupils: Equal, round and reactive pupils present EOM: EOMs intact bilaterally Direct Ophthalmoscopy: No no photophobia Neck Neck: Yes no lymphadenopathy, No tender and Yes no JVD Thyroid: Thyroid normal Carotids: no bruits Chest Chest palpation & inspection: no tenderness Resp Effort & Inspection: normal respiratory effort, no audible wheezes, not labored and no stridor Auscultation: no crackles, no rales, no rhonchi and no wheezes Cardio Jugular venous distension: no JVD Rate: regular rate, not bradycardic and not tachycardic Rhythm: regular rhythm Bruits: no carotid bruits Peripheral pulses: Peripheral pulses 2+ throughout GI Inspection: Yes normal to inspection, No abdominal wall ecchymosis and No visible herniation Palpation (GI): Soft to palpation, nontender, no guarding, not rigid and No hepatosplenomegaly present Auscultation: normoactive bowel sounds General: Yes no CVA tenderness Back/Spine/Pelvis Back: no CVA tenderness and No back tenderness Cervical Spine: cervical ROM normal Thoracic/Lumbar Spine: thoracic and lumbar spine normal to inspection, straight leg raise negative bilaterally, No thoraco-lumbar ROM limited and No lumbar spinal tenderness Skin Lesions: no lesions Rashes: no rashes Wounds: no wounds Neuro General: oriented to person, oriented to place, patient oriented x3, CN's II-XI intact bilaterally and No confusion Cranial nerves: Yes Equal, round and reactive pupils present and Yes Normal accommodation reflex present Cognition (Neuro): normal cognition Speech: No Abnormal speech present Gait exam (Neuro): Normal gait present Motor exam (neuro): 5/5 motor strength present throughout Extrem Right upper extremity: full ROM; no cyanosis Left upper extremity: full ROM; no cyanosis Right lower extremity: no edema Left lower extremity: no edema Psych Appearance: grossly normal Mental Status: mental status grossly normal Affect: normal affect Attitude: cooperative Thought process: Normal thought process present Coding Level of Care Code Est Pt Prev Care 40-64y(29379) Diagnoses Annual physical exam Z00.00 Mixed hyperlipidemia E78.2 Hyperlipidemia type: mixed hyperlipidemia Elevated blood pressure reading in office without diagnosis of hypertension R03.0 Impaired glucose metabolism R73.09 Additional Codes YVES-7 Assessment Billing - YVES-7 Assessment Tool: YVES-7 Assessment 57147 ([id number]) PHQ-9 - 48965 - PHQ-9 Billing: Yes ([id number]) Assessment & Plan Assessment & Plan (1) Annual physical exam: Code(s): Z00.00 - Encounter for general adult medical examination without abnormal findings Category: Medical Plan: As per HPI (2) HLD (hyperlipidemia): Code(s): E78.5 - Hyperlipidemia, unspecified Category: Medical Qualifiers: Hyperlipidemia type: mixed hyperlipidemia Qualified Code(s): E78.2 - Mixed hyperlipidemia Plan: Patient has a history of elevated total cholesterol and LDL. He has started simvastatin and has been using a 3 times a week due to side effects of myalgias. Of note does have family history of coronary artery disease. Goal LDL to be below 160 (3) Elevated blood pressure reading in office without diagnosis of hypertension: Code(s): R03.0 - Elevated blood-pressure reading, without diagnosis of hypertension Category: Medical Plan: Have noted slightly elevated blood pressures here in the office. Not interested in starting medication at this time . Repeat blood pressure reading improved. He will commence more regular monitoring at home. (4) Impaired glucose metabolism: Code(s): R73.09 - Other abnormal glucose Category: Medical Plan: Patient does have a history of impaired glucose metabolism. Most recent A1c is 6.0. Again patient will like to work on lifestyle and dietary modifications to reduce his blood sugars. Orders: Orders Lipid Panel Today E78.2 - Mixed hyperlipidemia Hemoglobin A1c Today R73.09 - Other abnormal glucose Comprehensive [place]. Panel Fast Today R73.09 - Other abnormal glucose Prostate Specific Antigen Scr Today R73.09 - Other abnormal glucose, Z12.5 - Encounter for screening for malignant neoplasm of prostate Referrals Cologuard Test Z12.11 - Encounter for screening for malignant neoplasm of colon Medications: Refilled simvastatin 10 mg PO DAILY 90 days 90 tabs 1RF E78.2 - Mixed hyperlipidemia Patient Instructions: Goal: LDL to be below 130, fasting blood sugar to be below 100 Barriers: Adherence to physical activity and healthy eating habits
[2024-06-25 10:15] VITALS: BP 128/75
== END 2024-06-25 10:20 | disposition home or self-care (01) ==
PROVIDERS: PCP Physician Assistant; Visit Provider Physician Assistant
DX: Z00.00 Encounter for general adult medical examination without abnormal findings (principal); E78.2 Mixed hyperlipidemia; R03.0 Elevated blood-pressure reading, without diagnosis of hypertension; R73.09 Other abnormal glucose

== ENCOUNTER 2024-06-25 09:38 | Outpatient (REF) | payer BC, OTHER, SELFPAY ==
[2024-06-25 11:15] LABS: Estimated Average Glucose 126 mg/dL; Hemoglobin A1C 151.6106 umol/L; Total Hemoglobin (HGBA1C) 3604.6476 umol/L
[2024-06-25 11:26] LABS: Alanine Aminotransferase 56 U/L (0-40); Albumin Level 4.4 g/dL (3.5-5.0); Alkaline Phosphatase 44 U/L (39-117); Anion Gap 7 (12-20); Aspartate Amino Transferase 27 U/L (5-37); Bilirubin Total 0.5 mg/dL (0.0-1.0); Blood Urea Nitrogen 14 mg/dL (9-16); Carbon Dioxide 29 mmol/L (22-29); Chloride 111 mmol/L (96-108); Cholesterol 208 mg/dL (<200); Estimated Glomerular Filt Rate > 60; Glucose Fasting 98 mg/dL (60-99); HDL Cholesterol 38 mg/dL (>40); LDL Cholesterol Calculated 135 mg/dL (<100); Sodium 143 mmol/L (135-145); Total Protein 7.1 g/dL (6.5-8.0); Triglycerides 175 mg/dL (<150)
[2024-06-25 11:44] LABS: Prostate Specific Antigen Scr 0.84 ng/mL (<0.05-4.0)
== END 2024-06-25 09:39 | disposition home or self-care (01) ==
LOC: HO.LAB 09:38
PROVIDERS: PCP Physician Assistant; Visit Provider Physician Assistant
DX: Z00.00 Encounter for general adult medical examination without abnormal findings (principal); E78.2 Mixed hyperlipidemia; R03.0 Elevated blood-pressure reading, without diagnosis of hypertension; R73.09 Other abnormal glucose; Z79.899 Other long term (current) drug therapy; Z12.5 Encounter for screening for malignant neoplasm of prostate
CPT/HCPCS: 36415; 80053; 80061; 83036; 84153; 96127

== ENCOUNTER 2025-03-31 10:50 | Outpatient (AMB) | payer BC, SELFPAY ==
--- NOTE | 2025-03-31 10:54 | MHC.PC.OV ---
Vital Signs 03/31/25 10:55 Height 5 ft 7 in Weight 157 lb 2 oz BMI 24.6 BP 130/78 Blood Pressure Location Lt brachial Position Sitting Pulse 79 Pulse Source Pulse Oximeter Temp 97.1 F Temp Source Temporal Artery Scan Pulse Oximetry (%) 98 Oxygen Delivery Method Room Air Intake Visit Reasons: f/u HLD Intake Note: Patient is here to follow up on HLD. Resident Care Director Required: No Criminal Researcher: Not Required per policy Accompanied by: Self / Same As Patient Allergies atorvastatin Allergy (Mild, Verified 03/31/25 11:33) Unknown Medication List - Last Reconciled 03/31/25 by Ismael Blanco PA-C cholecalciferol (vitamin D3) 50 mcg PO DAILY 90 days cyclobenzaprine 10 mg PO Q8H fluticasone propionate 50 mcg/actuation (Flonase Allergy Relief) 1 spray intranasal BID 30 days ibuprofen 600 mg PO Q6H PRN omeprazole magnesium (Prilosec OTC) 20 mg PO DAILY 90 days simvastatin 10 mg PO DAILY 90 days Tobacco use date assessed: 03/31/25 Dental Screening Dental Screen Date: 06/25/24 HPI f/u HLD HPI Details Patient is a 49-year-old male here today for a follow-up visit Patient's past medical history significant for hyperlipidemia, GERD, impaired glucose metabolism and chronic lower lumbar spine pain. .. Hyperlipidemia: Most recent fasting lipid panel showing elevated total cholesterol and LDL. Does have family history of coronary artery disease. Started simvastatin has been taking it 3 times a week. He does report mild side effects of myalgias. He will recheck his fasting lipid panel. .. Impaired glucose metabolism: Most recent labs showing of elevated fasting blood sugar and an A1c is 6.0. 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 - [employer] Cognitive needs: No Hearing needs: No Vision needs: No Questionnaire Thrive Questionnaire Date Thrive assessed: 06/25/24 I am a: Patient What is your living situation today?: I have a steady place to live Within the past 12 months, did the food you bought not last and you didn't have the money to get more?: Never true Within the past 12 months, did you worry whether your food would run out before you got money to buy more?: Never true Do you have trouble paying for medicines?: No Do you have trouble getting transportation to medical appointments?: No Do you have trouble paying your heating and electricity bill?: No Do you have trouble taking care of your child, family member or friend?: No Do you have trouble with day-to-day activities such as bathing, preparing meals, shopping, managing finances, etc.?: No Are you currently unemployed and looking for a job?: No Are you interested in more education?: No Please select the resources that you would like help with: None Currently or been in a relationship where the following occur: No concerns reported THRIVE Score: 0 YVES-7 AMB Questionnaire YVES-7 Date YVES - 7 assessed: 06/25/24 Source: Developed by Drs. Justin Kirk, Amparo Otero, Félix Gonzalez and colleagues, with an educational samuel from [employer]. Review of Systems Const Denies headache(s) Eyes Denies loss of vision ENT Denies vertigo, Denies dizziness, Denies headache(s) and Denies sore throat Card Denies chest pain, Denies leg edema and Denies lightheadedness Resp Denies cough, Denies hemoptysis and Denies wheezing GI Denies abdominal pain, Denies melena, Denies constipation, Denies diarrhea and Denies vomiting Denies dysuria, Denies urinary frequency and Denies urinary urgency Musc Denies arthralgias, Denies joint swelling, Denies numbness and Denies tingling Neuro Denies Abnormal speech present, Denies behavioral changes, Denies vertigo, Denies dizziness, Denies headache(s), Denies loss of vision, Denies memory loss, Denies numbness and Denies tingling Psych Denies anxiety, Denies behavioral changes, Denies depression, Denies memory loss and Denies panic attacks Lucas/Lymph Denies easy bleeding and Denies easy bruising Aller/Immun Denies wheezing Physical exam (Primary Care) Vital Signs: Last Vital Signs Temp 97.1 F 03/31/25 10:55 Pulse 709 H 03/31/25 10:55 BP 130/78 03/31/25 10:55 Pulse Ox 98 03/31/25 10:55 Oxygen Delivery Method Room Air 03/31/25 10:55 BMI result Body Mass Index 24.6 Tobacco/Smoking Status: Tobacco use Status Tobacco use date assessed 03/31/25 03/31/25 10:59 Patient Tobacco Use Status Former Tobacco user 03/31/25 10:59 Tobacco use type Cigarette 03/31/25 10:59 e-Cigarette/Vaping Use Currently Using 03/31/25 10:59 Thrive Assessment: Date of Thrive Assessment Date Thrive assessed 06/25/24 03/31/25 10:59 Currently or been in a relationship where the following occur: No concerns reported Const General: healthy appearing, no acute distress, alert and awake Nutritional Appearance: well nourished Orientation/consciousness: oriented to person, oriented to place and oriented to time HENMT Ears: TM's normal bilaterally General nose exam: Normal nasal mucous membranes and turbinates present Eyes Conjunctivae: conjunctivae normal Sclerae: sclerae normal Pupils: Equal, round and reactive pupils present Neck Neck: Yes no lymphadenopathy and Yes no JVD Thyroid: Thyroid normal Carotids: no bruits Resp Effort & Inspection: normal respiratory effort and not tachypneic Auscultation: no crackles, no rales, no rhonchi and no wheezes Cardio Rate: regular rate Rhythm: regular rhythm Heart sounds: no murmurs and normal S1 and S2 GI Palpation (GI): Soft to palpation, nontender, no hepatomegaly and no splenomegaly Auscultation: normal bowel sounds Skin General skin exam: no rashes or lesions noted and dry skin Neuro General: oriented to person, oriented to place and oriented to time Cranial nerves: Yes Equal, round and reactive pupils present Speech: No Abnormal speech present Gait exam (Neuro): Normal gait present Motor exam (neuro): no tremor noted Extrem Right upper extremity: full ROM Left upper extremity: full ROM Right lower extremity: full ROM; no edema Left lower extremity: full ROM; no edema Psych Mental Status: mental status grossly normal Speech and movement: Normal speech and movement present Affect: normal affect Attitude: cooperative Thought process: Normal thought process present Coding Level of Care Code Est Pt Level 4 (33368) Diagnoses HLD (hyperlipidemia) E78.5 Impaired glucose metabolism R73.09 Assessment & Plan Assessment & Plan (1) HLD (hyperlipidemia): Code(s): E78.5 - Hyperlipidemia, unspecified Category: Medical Plan: Patient has a history of elevated total cholesterol and LDL. He has started simvastatin and has been using a 3 times a week due to side effects of myalgias. Of note does have family history of coronary artery disease. Goal LDL to be below 160 (2) Impaired glucose metabolism: Code(s): R73.09 - Other abnormal glucose Category: Medical Plan: Patient does have a history of impaired glucose metabolism. Most recent A1c is 6.0. Again patient will like to work on lifestyle and dietary modifications to reduce his blood sugars. Orders: Orders Hemoglobin A1c Today R73.09 - Other abnormal glucose Lipid Panel Today E78.2 - Mixed hyperlipidemia Comprehensive [place]. Panel Fast Today E78.2 - Mixed hyperlipidemia Complete Blood Count no Diff Today E78.2 - Mixed hyperlipidemia Medications: Refilled omeprazole magnesium (Prilosec OTC) 20 mg PO DAILY 90 tabs 1RF 90 days K21.9 - Gastro-esophageal reflux disease without esophagitis ibuprofen 600 mg PO Q6H PRN 30 tabs 0RF fever or pain E78.2 - Mixed hyperlipidemia fluticasone propionate 50 mcg/actuation (Flonase Allergy Relief) administer into each nostril 1 spray intranasal BID 16 grams 1RF 30 days K21.9 - Gastro-esophageal reflux disease without esophagitis
[2025-03-31 10:55] VITALS: BP 130/78; PULSE 79; TEMP 36.2; O2SAT 98; BMI 24.6
== END 2025-03-31 11:39 | disposition home or self-care (01) ==
LOC: HO.HMCH 10:51
PROVIDERS: PCP Physician Assistant; Visit Provider Physician Assistant
DX: E78.5 Hyperlipidemia, unspecified (principal); R73.09 Other abnormal glucose